=== PATIENT | female | born 1965 | race Caucasian/White ===

== ENCOUNTER 2018-08-19 14:09 | Inpatient (IN) | payer OTHER ==
[2018-08-19] MEDS ORDERED: NACL 0.9% 3 ML SYG IV (15:30)
[2018-08-19] MEDS ORDERED: ONDANSETRON 4 MG INJ IV (15:30)
[2018-08-19] MEDS ORDERED: ACETAMINOPHEN 650 MG SUPP PR (15:30)
[2018-08-19] MEDS ORDERED: NITROGLYCERIN (SL) 0.4 MG TAB SL (16:30)
[2018-08-19] MEDS: morphine 2 MG INJ IV ×2 (16:36→21:56)
[2018-08-19 18:10] LABS: CREATINE KINASE 66 IU/L (23-200)
[2018-08-19 18:21] LABS: CK INDEX 0.3; CK-MB < 0.22 ng/ml (0.0-2.4); TROPONIN-I < 0.012 ng/ml (0.000-0.120)
[2018-08-19] MEDS: FAMOTIDINE 20 MG INJ IV (21:55)
[2018-08-19 22:44] LABS: CREATINE KINASE 57 IU/L (23-200)
[2018-08-19 22:58] LABS: CK INDEX 0.4; CK-MB < 0.22 ng/ml (0.0-2.4); TROPONIN-I < 0.012 ng/ml (0.000-0.120)
[2018-08-20] MEDS: HYDROCODONE/APAP (5/325) TAB PO (00:39)
[2018-08-20 01:33] LABS: BARBITURATES Negative (NEGATIVE); BENZODIAZEPINES Negative (NEGATIVE); CANNABINOIDS Negative (NEGATIVE)
[2018-08-20 01:37] LABS: COCAINE Positive (NEGATIVE); OPIATES Positive (NEGATIVE)
[2018-08-20 01:45] LABS: AMPHETAMINE/METHAMPHETAMINE POSITIVE (NEGATIVE)
[2018-08-20 06:56] LABS: ADD MAN DIFF? NO
[2018-08-20 06:58] LABS: WHITE BLOOD COUNT 8.5 10^3/ul (4.8-10.8)
[2018-08-20 06:58] LABS: BASOPHILS % 0.2 % (0.0-2.0); EOSINOPHILS # 0.1 10^3/ul (0.0-0.5); EOSINOPHILS % 1.2 % (0.0-7.0); HEMATOCRIT 39.1 % (37.0-47.0); HEMOGLOBIN 13.6 g/dl (12.0-16.0); LYMPHOCYTES % 22.9 % (15.0-51.0); MEAN CORPUSCULAR HEMOGLOBIN 32.7 pg (29.0-33.0); MEAN CORPUSCULAR HGB CONC 34.8 g/dl (32.0-37.0); MEAN PLATELET VOLUME 10.9 fl (7.4-10.4); MONOCYTE # 0.6 10^3/ul (0.3-0.9); MONOCYTES % 7.2 % (0.0-11.0); NEUTROPHIL # 5.8 10^3/ul (1.6-7.5); NEUTROPHILS % 68.3 % (39.0-77.0); PLATELET COUNT 156 10^3/UL (140-415); RED BLOOD COUNT 4.16 10^6/ul (4.20-5.40); RED CELL DISTRIBUTION WIDTH 12.4 % (11.5-14.5)
[2018-08-20 07:26] LABS: ALANINE AMINOTRANSFERASE 55 IU/L (13-69); ALBUMIN 2.9 g/dl (3.3-4.9); ALBUMIN/GLOBULIN RATIO 0.87; ALKALINE PHOSPHATASE 56 IU/L (42-121); ANION GAP 9 (5-13); ASPARTATE AMINO TRANSFERASE 65 IU/L (15-46); BLOOD UREA NITROGEN 9 mg/dl (7-20); CALCIUM 7.8 mg/dl (8.4-10.2); CARBON DIOXIDE 24 mmol/L (21-31); CHLORIDE 110 mmol/L (97-110); CHOL/HDL RATIO 2.1 RATIO; CHOLESTEROL 109 mg/dl (100-200); CREATININE 0.63 mg/dl (0.44-1.00); Estimated GFR > 60 mL/min (>60); GLUCOSE 155 mg/dl (70-220); HDL CHOLESTEROL 51 mg/dl (37-92); LDL CHOLESTEROL,CALCULATED 49 mg/dl; MAGNESIUM 1.4 mg/dl (1.7-2.5); PHOSPHORUS 3.5 mg/dl (2.5-4.9); POTASSIUM 3.1 mmol/L (3.5-5.1); SODIUM 143 mmol/L (135-144); TOTAL PROTEIN 6.2 g/dl (6.1-8.1); TRIGLYCERIDES 45 mg/dl (0-149)
[2018-08-20 07:31] LABS: HEMOGLOBIN A1C 4.9 % (0-5.9)
[2018-08-20 07:37] LABS: FREE THYROXINE INDEX (Calc) 2.78 ug/ml (0.65-3.89); T3 UPTAKE 32.3 % (23.5-40.5); T4 (THYROXINE) 8.6 ug/dl (5.5-11.0)
[2018-08-20] MEDS: POTASSIUM CHLORIDE (SR) 20 MEQ TAB PO (08:54)
[2018-08-20] MEDS: FAMOTIDINE 20 MG INJ IV (08:54)
[2018-08-20] MEDS: MAGNESIUM SULFATE 4 GM/100 ML 100 ML IVPB (09:13)
[2018-08-20] MEDS: morphine 2 MG INJ IV ×2 (16:02→21:03)
[2018-08-20 16:58] LABS: PROCALCITONIN 0.09 ng/mL (0.00-0.10)
[2018-08-20] MEDS: ACETAMINOPHEN 325 MG TAB PO (19:19)
[2018-08-20] MEDS: FAMOTIDINE 20 MG TAB PO (21:03)
[2018-08-20] MEDS: QUETIAPINE 100 MG TAB PO (21:04)
[2018-08-20] MEDS: HEPARIN 5,000 UNIT/1 ML VIAL SC (21:34)
[2018-08-21] MEDS: HYDROCODONE/APAP (5/325) TAB PO (00:33)
[2018-08-21 05:48] LABS: ADD MAN DIFF? NO
[2018-08-21 05:50] LABS: BASOPHILS % 0.4 % (0.0-2.0); EOSINOPHILS # 0.1 10^3/ul (0.0-0.5); EOSINOPHILS % 1.8 % (0.0-7.0); HEMATOCRIT 38.3 % (37.0-47.0); LYMPHOCYTES # 1.7 10^3/ul (0.8-2.9); LYMPHOCYTES % 34.2 % (15.0-51.0); MEAN CORPUSCULAR HEMOGLOBIN 32.4 pg (29.0-33.0); MEAN CORPUSCULAR HGB CONC 33.9 g/dl (32.0-37.0); MEAN CORPUSCULAR VOLUME 95.5 fl (82.0-101.0); MEAN PLATELET VOLUME 11.4 fl (7.4-10.4); MONOCYTE # 0.5 10^3/ul (0.3-0.9); MONOCYTES % 9.5 % (0.0-11.0); NEUTROPHIL # 2.7 10^3/ul (1.6-7.5); NEUTROPHILS % 53.9 % (39.0-77.0); PLATELET COUNT 159 10^3/UL (140-415); RED BLOOD COUNT 4.01 10^6/ul (4.20-5.40); RED CELL DISTRIBUTION WIDTH 12.5 % (11.5-14.5)
[2018-08-21 06:06] LABS: ANION GAP 6 (5-13); BLOOD UREA NITROGEN 10 mg/dl (7-20); CALCIUM 8.5 mg/dl (8.4-10.2); CARBON DIOXIDE 24 mmol/L (21-31); CHLORIDE 115 mmol/L (97-110); CREATININE 0.66 mg/dl (0.44-1.00); Estimated GFR > 60 mL/min (>60); GLUCOSE 98 mg/dl (70-220); POTASSIUM 3.4 mmol/L (3.5-5.1); SODIUM 145 mmol/L (135-144)
[2018-08-21] MEDS: FAMOTIDINE 20 MG TAB PO ×2 (09:01→21:45)
[2018-08-21] MEDS: HEPARIN 5,000 UNIT/1 ML VIAL SC ×2 (09:03→21:46)
[2018-08-21] MEDS: ASPIRIN 81 MG TAB PO (09:08)
[2018-08-21] MEDS: morphine 2 MG INJ IV ×3 (09:14→23:55)
[2018-08-21 16:51] LABS: ETHANOL < 10.0 mg/dl (0-0)
[2018-08-21] MEDS: QUETIAPINE 100 MG TAB PO (21:45)
[2018-08-22] MEDS: ASPIRIN 81 MG TAB PO (08:56)
[2018-08-22] MEDS: morphine 2 MG INJ IV (08:56)
[2018-08-22] MEDS: FAMOTIDINE 20 MG TAB PO (08:56)
[2018-08-22] MEDS: HEPARIN 5,000 UNIT/1 ML VIAL SC (08:57)
[2018-08-22] MEDS ORDERED: POTASSIUM CHLORIDE (SR) 20 MEQ TAB PO (12:58)
== END 2018-08-22 12:40 | DRG 313 ==
LOC: 5EC 08-21 01:30 → TEL 14:09
DX: R07.89 Other chest pain (principal); R45.851 Suicidal ideations; J98.11 Atelectasis; E83.42 Hypomagnesemia; F25.1 Schizoaffective disorder, depressive type; F14.10 Cocaine abuse, uncomplicated; F15.10 Other stimulant abuse, uncomplicated; D72.829 Elevated white blood cell count, unspecified; R73.9 Hyperglycemia, unspecified; E87.6 Hypokalemia; Z72.0 Tobacco use; J44.9 Chronic obstructive pulmonary disease, unspecified
CPT/HCPCS: 71045; 71046; 80048; 80053; 80061; 80307; 82550; 82553; 83036; 83735; 84100; 84145; 84436; 84443; 84479; 84484; 85025; 93005; 93306

== ENCOUNTER 2018-10-25 17:34 | Inpatient (IN) | payer OTHER ==
[2018-10-25] MEDS ORDERED: DOCUSATE SODIUM 100 MG CAP PO (19:00)
[2018-10-25] MEDS ORDERED: GUAIFENESIN/DM 5ML CUP PO (19:00)
[2018-10-25] MEDS ORDERED: BISACODYL (EC) 5 MG TAB PO (19:00)
[2018-10-25] MEDS ORDERED: NACL 0.9% 3 ML SYG IV (19:00)
[2018-10-25] MEDS: AZITHROMYCIN 500 MG TAB PO (19:49)
[2018-10-25] MEDS: SOD CHLORIDE 0.9% 1,000 ML IV (19:49)
[2018-10-25] MEDS: HYDROCODONE/APAP (5/325) TAB PO (20:12)
[2018-10-25] MEDS: FAMOTIDINE 20 MG TAB PO (20:12)
[2018-10-25] MEDS: QUETIAPINE 100 MG TAB PO (20:13)
[2018-10-25] MEDS: CEFTRIAXONE 2 GM/50 ML (PMX) 50 ML IVPB (20:14)
[2018-10-25] MEDS: SODIUM CHLORIDE 0.9% 1L BAG IV (20:25)
[2018-10-26] MEDS: SOD CHLORIDE 0.9% 1,000 ML IV (04:31)
[2018-10-26] MEDS: HYDROCODONE/APAP (5/325) TAB PO ×2 (08:25→14:58)
[2018-10-26] MEDS: FAMOTIDINE 20 MG TAB PO ×2 (08:25→20:38)
[2018-10-26] MEDS: AZITHROMYCIN 500 MG TAB PO (08:25)
[2018-10-26] MEDS: ENOXAPARIN 40 MG/0.4 ML SYG SC (08:27)
[2018-10-26] MEDS: NICOTINE (14 MG/24 HR) PATCH TRANSDERM (08:28)
[2018-10-26] MEDS: POTASSIUM CHLORIDE 20 MEQ POWDER FOR ORAL SOLN PO (09:28)
[2018-10-26] MEDS: MAGNESIUM SULFATE 2 GM/50 ML 50 ML IVPB (09:28)
[2018-10-26] MEDS: CEFTRIAXONE 2 GM/50 ML (PMX) 50 ML IVPB (18:35)
[2018-10-26] MEDS: QUETIAPINE 100 MG TAB PO (20:38)
[2018-10-27] MEDS: HYDROCODONE/APAP (5/325) TAB PO ×2 (05:46→17:49)
[2018-10-27] MEDS: FAMOTIDINE 20 MG TAB PO (08:32)
[2018-10-27] MEDS: POTASSIUM CHLORIDE 20 MEQ POWDER FOR ORAL SOLN PO (08:33)
[2018-10-27] MEDS: ENOXAPARIN 40 MG/0.4 ML SYG SC (08:35)
[2018-10-27] MEDS: NICOTINE (14 MG/24 HR) PATCH TRANSDERM (08:37)
[2018-10-27] MEDS: ONDANSETRON 4 MG INJ IV (10:25)
[2018-10-27] MEDS: ACETAMINOPHEN 325 MG TAB PO (10:32)
[2018-10-27] MEDS: AZITHROMYCIN 500 MG TAB PO (11:48)
[2018-10-27] MEDS ORDERED: ALBUTEROL HFA 8 GM INHALER INH (15:30)
[2018-10-27] MEDS: CEFTRIAXONE 2 GM/50 ML (PMX) 50 ML IVPB (19:41)
[2018-10-27] MEDS: QUETIAPINE 100 MG TAB PO (20:20)
[2018-10-28] MEDS: HYDROCODONE/APAP (5/325) TAB PO ×3 (05:11→21:21)
[2018-10-28] MEDS: POTASSIUM CHLORIDE 20 MEQ POWDER FOR ORAL SOLN PO (08:36)
[2018-10-28] MEDS: AZITHROMYCIN 500 MG TAB PO (08:36)
[2018-10-28] MEDS: FAMOTIDINE 20 MG TAB PO (08:36)
[2018-10-28] MEDS: ENOXAPARIN 40 MG/0.4 ML SYG SC (08:41)
[2018-10-28] MEDS: NICOTINE (14 MG/24 HR) PATCH TRANSDERM (08:43)
[2018-10-28] MEDS: MAGNESIUM SULFATE 4 GM/100 ML 100 ML IVPB (09:45)
[2018-10-28] MEDS: CEFTRIAXONE 2 GM/50 ML (PMX) 50 ML IVPB (20:06)
[2018-10-28] MEDS: QUETIAPINE 100 MG TAB PO (20:08)
[2018-10-29] MEDS: ZOLPIDEM 5 MG TAB PO ×2 (00:59→20:54)
[2018-10-29] MEDS: POTASSIUM CHLORIDE 20 MEQ POWDER FOR ORAL SOLN PO (08:48)
[2018-10-29] MEDS: FAMOTIDINE 20 MG TAB PO (08:48)
[2018-10-29] MEDS: AZITHROMYCIN 500 MG TAB PO (08:48)
[2018-10-29] MEDS: ENOXAPARIN 40 MG/0.4 ML SYG SC (08:52)
[2018-10-29] MEDS: NICOTINE (14 MG/24 HR) PATCH TRANSDERM (08:53)
[2018-10-29] MEDS: HYDROCODONE/APAP (5/325) TAB PO ×2 (09:01→20:04)
[2018-10-29] MEDS: FLUTICASONE/VILANTEROL 100-25 INH (16:01)
[2018-10-29] MEDS: TIOTROPIUM 18 MCG CAPSULE INHA DEV INH (16:01)
[2018-10-29] MEDS: QUETIAPINE 100 MG TAB PO (20:04)
[2018-10-30] MEDS: FLUTICASONE/VILANTEROL 100-25 INH (08:49)
[2018-10-30] MEDS: TIOTROPIUM 18 MCG CAPSULE INHA DEV INH (08:51)
[2018-10-30] MEDS: AZITHROMYCIN 500 MG TAB PO (08:52)
[2018-10-30] MEDS: FAMOTIDINE 20 MG TAB PO (08:52)
[2018-10-30] MEDS: NICOTINE (14 MG/24 HR) PATCH TRANSDERM (08:53)
[2018-10-30] MEDS: ENOXAPARIN 40 MG/0.4 ML SYG SC (08:54)
[2018-10-30] MEDS: ACETAMINOPHEN 325 MG TAB PO ×2 (09:21→19:45)
[2018-10-30] MEDS: MAGNESIUM SULFATE 4 GM/100 ML 100 ML IVPB (12:15)
[2018-10-30] MEDS: HYDROCODONE/APAP (5/325) TAB PO (14:39)
[2018-10-30] MEDS: QUETIAPINE 100 MG TAB PO (20:01)
[2018-10-30] MEDS: IBUPROFEN 600 MG TAB PO (20:47)
[2018-10-30] MEDS: ZOLPIDEM 5 MG TAB PO (20:47)
[2018-10-31] MEDS: FAMOTIDINE 20 MG TAB PO (08:22)
[2018-10-31] MEDS: FLUTICASONE/VILANTEROL 100-25 INH (08:22)
[2018-10-31] MEDS: NICOTINE (14 MG/24 HR) PATCH TRANSDERM (08:22)
[2018-10-31] MEDS: AZITHROMYCIN 500 MG TAB PO (08:23)
[2018-10-31] MEDS: ENOXAPARIN 40 MG/0.4 ML SYG SC (08:25)
[2018-10-31] MEDS: TIOTROPIUM 18 MCG CAPSULE INHA DEV INH (08:28)
[2018-10-31] MEDS: HYDROCODONE/APAP (5/325) TAB PO ×2 (13:23→19:29)
[2018-10-31] MEDS: QUETIAPINE 100 MG TAB PO (19:29)
[2018-10-31] MEDS: ACETAMINOPHEN 325 MG TAB PO (20:55)
[2018-10-31] MEDS: ZOLPIDEM 5 MG TAB PO (20:55)
[2018-11-01] MEDS ORDERED: LABETALOL 100 MG TAB (05:52)
[2018-11-01] MEDS: NICOTINE (14 MG/24 HR) PATCH TRANSDERM (09:00)
[2018-11-01] MEDS: TIOTROPIUM 18 MCG CAPSULE INHA DEV INH (09:00)
[2018-11-01] MEDS: FLUTICASONE/VILANTEROL 100-25 INH (09:00)
[2018-11-01] MEDS: ENOXAPARIN 40 MG/0.4 ML SYG SC (09:00)
[2018-11-01] MEDS: FAMOTIDINE 20 MG TAB PO (09:35)
[2018-11-01] MEDS: AZITHROMYCIN 500 MG TAB PO (09:35)
[2018-11-01] MEDS: HYDROCODONE/APAP (5/325) TAB PO ×2 (09:38→20:30)
[2018-11-01] MEDS: ALPRAZOLAM 0.5 MG TAB PO (15:24)
[2018-11-01] MEDS: QUETIAPINE 100 MG TAB PO (20:27)
[2018-11-01] MEDS: ZOLPIDEM 5 MG TAB PO (21:09)
[2018-11-02] MEDS: FAMOTIDINE 20 MG TAB PO (08:33)
[2018-11-02] MEDS: TIOTROPIUM 18 MCG CAPSULE INHA DEV INH (08:34)
[2018-11-02] MEDS: ENOXAPARIN 40 MG/0.4 ML SYG SC (08:34)
[2018-11-02] MEDS: FLUTICASONE/VILANTEROL 100-25 INH (08:34)
[2018-11-02] MEDS: NICOTINE (14 MG/24 HR) PATCH TRANSDERM (08:34)
[2018-11-02] MEDS: HYDROCODONE/APAP (5/325) TAB PO ×2 (14:14→20:24)
[2018-11-02] MEDS: QUETIAPINE 100 MG TAB PO (20:23)
[2018-11-02] MEDS: ZOLPIDEM 5 MG TAB PO (20:23)
[2018-11-03] MEDS: ACETAMINOPHEN 325 MG TAB PO (04:56)
[2018-11-03] MEDS: NICOTINE (14 MG/24 HR) PATCH TRANSDERM (08:54)
[2018-11-03] MEDS: ENOXAPARIN 40 MG/0.4 ML SYG SC (08:55)
[2018-11-03] MEDS: FAMOTIDINE 20 MG TAB PO (08:55)
[2018-11-03] MEDS: TIOTROPIUM 18 MCG CAPSULE INHA DEV INH (08:56)
[2018-11-03] MEDS: FLUTICASONE/VILANTEROL 100-25 INH (08:56)
[2018-11-03] MEDS: HYDROCODONE/APAP (5/325) TAB PO ×2 (08:59→19:49)
[2018-11-03] MEDS: QUETIAPINE 100 MG TAB PO (19:48)
[2018-11-03] MEDS: ONDANSETRON 4 MG INJ IV (20:48)
[2018-11-03] MEDS: ZOLPIDEM 5 MG TAB PO (20:49)
[2018-11-04] MEDS: FAMOTIDINE 20 MG TAB PO (08:33)
[2018-11-04] MEDS: FLUTICASONE/VILANTEROL 100-25 INH (08:33)
[2018-11-04] MEDS: TIOTROPIUM 18 MCG CAPSULE INHA DEV INH (08:34)
[2018-11-04] MEDS: ENOXAPARIN 40 MG/0.4 ML SYG SC (08:38)
[2018-11-04] MEDS: NICOTINE (14 MG/24 HR) PATCH TRANSDERM (08:38)
[2018-11-04] MEDS: ONDANSETRON 4 MG INJ IV (08:41)
[2018-11-04] MEDS: HYDROCODONE/APAP (5/325) TAB PO ×2 (16:39→22:38)
[2018-11-04] MEDS ORDERED: CALCIUM CARBONATE 500 MG CHEW TAB PO (17:30)
[2018-11-04] MEDS: ZOLPIDEM 5 MG TAB PO (20:14)
[2018-11-04] MEDS: QUETIAPINE 100 MG TAB PO (20:14)
[2018-11-04] MEDS: ACETAMINOPHEN 325 MG TAB PO (21:28)
[2018-11-04] MEDS: ONDANSETRON (ODT) 4 MG TAB ODT (21:28)
[2018-11-05] MEDS: HYDROCODONE/APAP (5/325) TAB PO ×3 (04:31→22:00)
[2018-11-05] MEDS: PANTOPRAZOLE (EC) 40 MG TAB PO (05:33)
[2018-11-05] MEDS: FLUTICASONE/VILANTEROL 100-25 INH (08:18)
[2018-11-05] MEDS: ENOXAPARIN 40 MG/0.4 ML SYG SC (08:19)
[2018-11-05] MEDS: TIOTROPIUM 18 MCG CAPSULE INHA DEV INH (08:19)
[2018-11-05] MEDS: NICOTINE (14 MG/24 HR) PATCH TRANSDERM (08:19)
[2018-11-05] MEDS: ACETAMINOPHEN 325 MG TAB PO (08:25)
[2018-11-05] MEDS: ALBUTEROL 0.083% (NEB) 2.5 MG/3 ML AMP HHN (11:52)
[2018-11-05] MEDS: ZOLPIDEM 5 MG TAB PO (20:50)
[2018-11-05] MEDS: QUETIAPINE 100 MG TAB PO (20:51)
[2018-11-06] MEDS: PANTOPRAZOLE (EC) 40 MG TAB PO (06:17)
[2018-11-06] MEDS: HYDROCODONE/APAP (5/325) TAB PO (06:17)
[2018-11-06] MEDS: ENOXAPARIN 40 MG/0.4 ML SYG SC (08:21)
[2018-11-06] MEDS: TIOTROPIUM 18 MCG CAPSULE INHA DEV INH (08:21)
[2018-11-06] MEDS: FLUTICASONE/VILANTEROL 100-25 INH (08:21)
[2018-11-06] MEDS: NICOTINE (14 MG/24 HR) PATCH TRANSDERM (08:22)
[2018-11-06] MEDS: ACETAMINOPHEN 325 MG TAB PO (08:29)
[2018-11-06] MEDS: QUETIAPINE 100 MG TAB PO (20:02)
== END 2018-11-06 20:24 | DRG 193 ==
LOC: MS3 10-26 13:23 → PP2 17:34
DX: J18.9 Pneumonia, unspecified organism (principal); J96.01 Acute respiratory failure with hypoxia; J44.1 Chronic obstructive pulmonary disease with (acute) exacerbation; E83.42 Hypomagnesemia; F17.200 Nicotine dependence, unspecified, uncomplicated; Z59.0 Homelessness; Z72.0 Tobacco use; F14.90 Cocaine use, unspecified, uncomplicated; F15.90 Other stimulant use, unspecified, uncomplicated; Z76.5 Malingerer [conscious simulation]; F25.1 Schizoaffective disorder, depressive type; E05.80 Other thyrotoxicosis without thyrotoxic crisis or storm
CPT/HCPCS: 71250; 80048; 80053; 82607; 83036; 83735; 84100; 84439; 84443; 84480; 84484; 84703; 85025; 93970; 94664